=== PATIENT | female | born 1975 | race Caucasian/White ===

== ENCOUNTER 2017-08-21 10:43 | Emergency (ER) | payer BC ==
[~2017-08-21] VITALS: Ht 167.6 cm; Wt 116.6 kg
[~2017-08-21 10:43] MED LIST: CLEOCIN300 MG PO
[2017-08-21 11:39] LABS: HEMATOCRIT 41.9 % (36.0-46.0); MCH 26.6 PG (29.0-34.0); MCHC 32.2 G/DL (30.0-36.0); MCV 82.6 FL (83-99); MEAN PLAT.VOLUME 9.2 uM^3 (9.5-12.4); PLATELET COUNT 396 K/uL (156-360); RBC DIS.WIDTH-CV 14.6 % (11.8-14.6); RBC DIS.WIDTH-SD 44.3 % (39-53); RED BLOOD COUNT 5.07 M/uL (3.80-5.20); WHITE BLOOD COUNT 12.6 K/uL (4.1-10.2)
[2017-08-21 11:51] LABS: CHLORIDE 107 mEq/L (99-109); POTASSIUM 3.7 mEq/L (3.7-5.4); SODIUM 139 mEq/L (136-147)
[2017-08-21 11:52] LABS: GLUCOSE 118 mg/dL (70-99)
[2017-08-21 11:54] LABS: ANION GAP 10 MEQ/L (2-14)
[2017-08-21 11:56] LABS: GFR ESTIMATE (CALCULATED) > 59 mL/min/; SERUM ETHYL ALCOHOL < 10 mg/dL
[2017-08-21 11:57] LABS: UREA NITROGEN (BUN) 13 mg/dL (9-23)
[2017-08-21 14:05] LABS: ADD MIUA? YES; BILIRUBIN NEGATIVE; BLOOD MODERATE; COLOR YELLOW ((YELLOW)); GLUCOSE (STRIP) NEGATIVE; KETONES 5; LEUKOCYTES NEGATIVE; NITRITE NEGATIVE; PROTEIN (STRIP) NEGATIVE; SPECIFIC GRAVITY 1.011 (1.000-1.030); UROBILINOGEN 0.2 MG/DL (0.2-1.0)
[2017-08-21 14:09] LABS: BACTERIA RARE /HPF; EPITHELIAL CELLS 1+ /HPF; INTERNAL CONTROL VALID? YES; MUCUS TRACE /LPF; RED BLOOD CELLS 0-5 /HPF (0-5); UCUL ADDED? NO; WHITE BLOOD CELLS 0-5 /HPF (0-5)
[2017-08-21 14:25] LABS: ADD MEDTOX COMMENT Y; AMPHETAMINE NEGATIVE (500 ng/mL); BARBITURATES NEGATIVE (200 ng/mL); BENZODIAZEPINES PRESUMPTIVE POSITIVE (150 ng/mL); COCAINE NEGATIVE (150 ng/mL); INTERNAL CONTROLS VALID? YES; METHADONE NEGATIVE (200 ng/mL); METHAMPHETAMINE NEGATIVE (500 ng/mL); OPIATES (MORPHINE) NEGATIVE (100 ng/mL); OXYCODONE NEGATIVE (100 ng/mL); PHENCYCLIDINE NEGATIVE (25 ng/mL); PROPOXYPHENE NEGATIVE (300 ng/mL); THC CANNABINOIDS NEGATIVE (50 ng/mL); TRICYCLIC ANTIDEPRESSANTS NEGATIVE (300 ng/mL)
[2017-08-21] MEDS ORDERED: VISTARIL25 MG PO (14:27)
[2017-08-21 14:45] VITALS: BP 132/75
[2017-08-21 15:00] LABS: BENZODIAZEPINES QUANT VALUE 0 NG/ML; BENZODIAZEPINES, URINE SCREEN Negative (200 ng/mL)
== END 2017-08-21 15:59 | disposition home or self-care (01) ==
LOC: EME 10:43
PROVIDERS: Emergency Medicine
DX: R42 Dizziness and giddiness (principal); F43.10 Post-traumatic stress disorder, unspecified; F32.9 Major depressive disorder, single episode, unspecified; F17.200 Nicotine dependence, unspecified, uncomplicated; Z88.0 Allergy status to penicillin
CPT/HCPCS: 80048; 81003; 84443; 84703; 84999; 85027; 99281; 99284; G0480; J7030

== ENCOUNTER 2017-09-09 15:52 | Observation (INO) | payer BC ==
[~2017-09-09] VITALS: Ht 165.1 cm; Wt 115.1 kg
[~2017-09-09 15:52] MED LIST changes: +VISTARIL25 MG PO
[2017-09-09 17:59] LABS: HEMATOCRIT 41.9 % (36.0-46.0); MCH 27.3 PG (29.0-34.0); MCHC 33.2 G/DL (30.0-36.0); MCV 82.3 FL (83-99); MEAN PLAT.VOLUME 9.4 uM^3 (9.5-12.4); PLATELET COUNT 365 K/uL (156-360); RBC DIS.WIDTH-CV 14.4 % (11.8-14.6); RED BLOOD COUNT 5.09 M/uL (3.80-5.20); WHITE BLOOD COUNT 16.1 K/uL (4.1-10.2)
[2017-09-09 18:12] LABS: CHLORIDE 106 mEq/L (99-109); SODIUM 138 mEq/L (136-147)
[2017-09-09 18:15] LABS: GLUCOSE 107 mg/dL (70-99)
[2017-09-09 18:16] LABS: ANION GAP 10 MEQ/L (2-14); TOTAL BILIRUBIN 0.3 mg/dL (0.0-1.0)
[2017-09-09 18:18] LABS: ALKALINE PHOSPHATASE 50 IU/L (3-129); GFR ESTIMATE (CALCULATED) > 59 mL/min/
[2017-09-09 18:19] LABS: UREA NITROGEN (BUN) 10 mg/dL (9-23)
[2017-09-09 18:27] LABS: ADD MIUA? YES; BILIRUBIN NEGATIVE; BLOOD SMALL; COLOR STRAW ((YELLOW)); GLUCOSE (STRIP) NEGATIVE; KETONES NEGATIVE; LEUKOCYTES NEGATIVE; NITRITE NEGATIVE; PROTEIN (STRIP) NEGATIVE; SPECIFIC GRAVITY 1.006 (1.000-1.030); UROBILINOGEN 0.2 MG/DL (0.2-1.0)
[2017-09-09 18:28] LABS: QUANTITATIVE HCG < 4.0 MIU/ML
[2017-09-09 18:31] LABS: BACTERIA RARE /HPF; EPITHELIAL CELLS RARE /HPF; MUCUS TRACE /LPF; RED BLOOD CELLS 0-5 /HPF (0-5); UCUL ADDED? NO; WHITE BLOOD CELLS 0-5 /HPF (0-5)
[2017-09-09 19:13] LABS: D-DIMER ELISA < 150.00 ng/mLDDU (<230); TROP-I INTERPRETATION NEGATIVE; TROPONIN-I < 0.01 ng/mL (0.0-0.30)
[2017-09-09 21:36] LABS: TROP-I INTERPRETATION NEGATIVE; TROPONIN-I < 0.01 ng/mL (0.0-0.30)
[2017-09-09 22:02] LABS: HDL CHOLESTEROL 36 MG/DL (Desirable>=50); LDL CHOLESTEROL 124 mg/dL (Desirable<100); NON-HDL CHOLESTEROL 142 mg/dL (Desirable<160); TOTAL CHOLESTEROL 178 mg/dL (Desirable<200); TRIGLYCERIDES 91 MG/DL (Normal: <150)
[2017-09-09 22:12] VITALS: BP 138/77
[2017-09-09] MEDS ORDERED: LEXAPRO5 MG PO (22:48)
[2017-09-09] MEDS ORDERED: XANAX0.5 MG PO (22:50)
[2017-09-10 01:07] LABS: TROP-I INTERPRETATION NEGATIVE; TROPONIN-I < 0.01 ng/mL (0.0-0.30)
[2017-09-10 03:43] VITALS: BP 122/66
[2017-09-10 05:38] LABS: TROP-I INTERPRETATION NEGATIVE; TROPONIN-I < 0.01 ng/mL (0.0-0.30)
[2017-09-10 07:27] VITALS: BP 122/70
[2017-09-10 07:36] VITALS: BP 122/55
[2017-09-10 08:44] LABS: Estimated Average Glucose 123 mg/dL (70-123); HEMOGLOBIN A1c (GLYCOHEMOGLOB) 5.9 % HGB (Below 5.7)
[2017-09-10 11:30] VITALS: BP 121/58
[2017-09-10] MEDS ORDERED: ASPIRIN EC325 MG PO (12:00)
[2017-09-10] MEDS ORDERED: ANTIVERT25 MG PO (12:01)
[2017-09-10] MEDS ORDERED: Cipro 0.2% Otic Solu BOTH EARS (12:02)
[2017-09-10] MEDS ORDERED: CIPRO HC OTIC S10 ML BOTH EARS (12:02)
== END 2017-09-10 15:56 | disposition home or self-care (01) ==
LOC: EME 15:52 → 5WEST 21:11 → EDOF 21:11 → ENRESERV 21:12 → 5WEST 22:05 → ENPENDDIS 09-10 → 5WEST 09-10 15:56
PROVIDERS: Hospitalist; Physician Assistant
DX: R42 Dizziness and giddiness (principal); F43.10 Post-traumatic stress disorder, unspecified; R94.31 Abnormal electrocardiogram [ECG] [EKG]; F40.240 Claustrophobia; R45.83 Excessive crying of child, adolescent or adult; F32.9 Major depressive disorder, single episode, unspecified; Z87.891 Personal history of nicotine dependence; R09.89 Other specified symptoms and signs involving the circulatory and respiratory systems; R51 Headache; F17.200 Nicotine dependence, unspecified, uncomplicated; Z88.0 Allergy status to penicillin
CPT/HCPCS: 70450; 71020; 80053; 80061; 81003; 83036; 84484; 84702; 85027; 85379; 93005; 93306; 99281; 99285; G0378; J1650; J2405; J7030